=== PATIENT | female | born 1975 | race Caucasian/White ===

== ENCOUNTER 2020-03-11 13:59 | Observation (INO) ==
[2020-03-11 15:41] LABS: Basophils % 0.4 %; Eosinophils # 0.1 K/mcL (0.0-0.6); Eosinophils % 0.6 %; Hematocrit 34.9 % (35.3-44.9); Hemoglobin 11.9 g/dL (11.5-15.4); Lymphocytes # 1.7 K/mcL (0.6-4.6); Lymphocytes % 21.8 %; Mean Corpuscular HGB Conc 34.1 g/dL (31.6-35.5); Mean Corpuscular Hemoglobin 30.7 pg (28.0-33.3); Mean Corpuscular Volume 89.9 fL (83.0-100.0); Mean Platelet Volume 9.7 fL (9.4-12.4); Monocytes # 0.7 K/mcL (0.0-1.3); Monocytes % 8.4 %; Neutrophils # 5.4 K/mcL (1.6-8.9); Platelet Count 326 K/mcL (140-400); Red Blood Count 3.88 M/mcL (3.82-4.97); Red Cell Distribution Width 11.3 % (11.5-14.5); Segmented Neutrophils % 67.8 %
[2020-03-11 16:05] LABS: Alanine Aminotransferase 7 Units/L (7-52); Albumin 4.1 g/dL (3.5-5.7); Albumin/Globulin Ratio 0.9 (1.1-2.2); Alkaline Phosphatase 102 Units/L (34-104); Amylase 20 Units/L (29-103); Aspartate Amino Transferase 10 Units/L (13-39); BUN/Creatinine Ratio 20 (6-26); Bilirubin,Direct 0.1 mg/dL (0.0-0.2); Bilirubin,Indirect 0.6 mg/dL (0.0-1.0); Bilirubin,Total 0.7 mg/dL (0.3-1.0); Blood Urea Nitrogen 12 mg/dL (6-20); Calcium 10.2 mg/dL (8.6-10.3); Carbon Dioxide 29 mEq/L (23-29); Chloride 95 mEq/L (98-107); Globulin 4.7 g/dL (2.4-3.5); Glucose 228 mg/dL (70-105); Lipase 20 Units/L (11-82); Osmolality,Calculated 283 (280-300); Potassium 3.4 mEq/L (3.5-5.1); Sodium 133 mEq/L (136-145); Total Protein 8.8 g/dL (6.4-8.9); eGFR For African Americans > 60 (> 60); eGFR For Non-African Americans > 60 (> 60)
[2020-03-11] MEDS ORDERED: Micafungin 100 MG in 0.9 % Sodium Chloride Mini Bag 100 ML IVPB STA (16:21)
[2020-03-11] MEDS ORDERED: Isovue-370 500 ML BOTTLE IVP ONE (16:43)
[2020-03-11] MEDS ORDERED: cefTRIAXone 1,000 MG in Water for inj. (sterile) 10 ML IVP ONE (17:39)
[2020-03-11] MEDS ORDERED: 0.9 % Sodium Chloride 1,000 ML IVC ONE (17:52)
[2020-03-11 18:09] LABS: Bilirubin,Urine Negative (Negative); Blood,Urine Moderate (Negative); Budding Yeast,Urine Many per hpf (None Seen); Clarity,Urine Ex.Turbid (Clear); Color,Urine Yellow (Yellow); Glucose,Urine (UA) 50 mg/dL (Normal); Ketones,Urine Negative (Negative); Leukocyte Esterase,Urine Large (Negative); Mucus,Urine Few per lpf (None-Few); Nitrite,Urine Negative (Negative); Protein,Urine 200 mg/dL (Neg-Trace); RBC,Urine 50-100 per hpf (0-3); Specific Gravity,Urine > 1.030 (1.010-1.025); Urobilinogen,Urine Normal (Normal); WBC,Urine TNTC per hpf (0-3)
[2020-03-11] MEDS ORDERED: Ondansetron 4 MG/2 ML VIAL IVP PRN (18:13)
[2020-03-11] MEDS ORDERED: Naloxone 0.4 MG/ML INJ IVP PRN (18:13)
[2020-03-11] MEDS ORDERED: Vancomycin 1,250 MG/262.5 ML IV.SOLN IVPB SCH (19:00)
[2020-03-11 19:20] LABS: Estimated Average Glucose 275 mg/dl
[2020-03-11] MEDS ORDERED: Insulin DETEMIR 100 UNIT/ML X5UNITS SQ SCH (21:00)
[2020-03-11] MEDS: *HR* Heparin 5,000 UNIT/ML VIAL SQ SCH (21:07)
[2020-03-11] MEDS: 0.9 % Sodium Chloride 1,000 ML IVC SCH (21:07)
[2020-03-11] MEDS: hydrOXYzine pamoate 25 MG CAPSULE PO SCH (21:08)
[2020-03-11] MEDS: Gabapentin 300 MG CAPSULE PO SCH (21:08)
[2020-03-11] MEDS: hydrALAZINE 25 MG TABLET PO SCH (21:08)
[2020-03-11] MEDS: *HR* HYDROcodone/Acet 5/325 mg TABLET PO PRN (21:14)
[2020-03-12] MEDS: Piperacillin/Tazobactam 3.375 GM in 0.9 % Sodium Chloride Mini Bag 100 ML IVPB SCH ×3 (01:44→17:12)
[2020-03-12 05:46] LABS: Basophils # 0.1 K/mcL (0.0-0.2); Basophils % 0.7 %; Eosinophils % 0.5 %; Hematocrit 31.6 % (35.3-44.9); Immature Granulocytes % 0.9 % (0-4); Lymphocytes # 1.4 K/mcL (0.6-4.6); Lymphocytes % 18.4 %; Mean Corpuscular HGB Conc 32.3 g/dL (31.6-35.5); Mean Corpuscular Hemoglobin 29.5 pg (28.0-33.3); Mean Corpuscular Volume 91.3 fL (83.0-100.0); Mean Platelet Volume 9.4 fL (9.4-12.4); Monocytes # 0.7 K/mcL (0.0-1.3); Monocytes % 8.8 %; Neutrophils # 5.4 K/mcL (1.6-8.9); Platelet Count 287 K/mcL (140-400); Red Blood Count 3.46 M/mcL (3.82-4.97); Red Cell Distribution Width 11.4 % (11.5-14.5); Segmented Neutrophils % 70.7 %; White Blood Count 7.6 K/mcL (4.3-11.1)
[2020-03-12] MEDS: *HR* Heparin 5,000 UNIT/ML VIAL SQ SCH ×3 (05:48→21:34)
[2020-03-12 05:49] LABS: Hemoglobin 10.2 g/dL (11.5-15.4)
[2020-03-12 06:00] LABS: BUN/Creatinine Ratio 28 (6-26); Blood Urea Nitrogen 14 mg/dL (6-20); Calcium 8.9 mg/dL (8.6-10.3); Carbon Dioxide 26 mEq/L (23-29); Chloride 102 mEq/L (98-107); Glucose 249 mg/dL (70-105); Magnesium 1.8 mg/dL (1.6-2.6); Osmolality,Calculated 289 (280-300); Phosphorous 3.5 mg/dL (2.7-4.5); Potassium 3.7 mEq/L (3.5-5.1); Sodium 135 mEq/L (136-145); eGFR For African Americans > 60 (> 60); eGFR For Non-African Americans > 60 (> 60)
[2020-03-12] MEDS: Gabapentin 300 MG CAPSULE PO SCH ×3 (07:38→21:34)
[2020-03-12] MEDS: hydroCHLOROthiazide 25 MG TABLET PO SCH (07:38)
[2020-03-12] MEDS: hydrALAZINE 25 MG TABLET PO SCH ×3 (07:38→21:34)
[2020-03-12] MEDS: lisinopriL 5 MG TABLET PO SCH (07:38)
[2020-03-12] MEDS: 0.9 % Sodium Chloride 1,000 ML IVC SCH (07:39)
[2020-03-12] MEDS: Insulin LISPRO 300 UNITS/3 ML VIAL SQ SCH ×3 (07:42→17:13)
[2020-03-12] MEDS: Vancomycin 1,250 MG/262.5 ML IV.SOLN IVPB SCH ×2 (09:02→21:35)
[2020-03-12] MEDS: Acetaminophen 325 MG TABLET PO PRN (14:37)
[2020-03-12] MEDS: Micafungin 100 MG in 0.9 % Sodium Chloride Mini Bag 100 ML IVPB SCH (16:20)
[2020-03-12] MEDS ORDERED: Insulin DETEMIR 100 UNIT/ML X5UNITS SQ SCH (21:00)
[2020-03-12] MEDS: hydrOXYzine pamoate 25 MG CAPSULE PO SCH (21:34)
[2020-03-12] MEDS: *HR* HYDROcodone/Acet 5/325 mg TABLET PO PRN (21:44)
[2020-03-13] MEDS: Piperacillin/Tazobactam 3.375 GM in 0.9 % Sodium Chloride Mini Bag 100 ML IVPB SCH ×2 (00:11→09:33)
[2020-03-13] MEDS: *HR* Heparin 5,000 UNIT/ML VIAL SQ SCH ×2 (05:05→14:06)
[2020-03-13 07:19] LABS: Hematocrit 26.1 % (35.3-44.9); Mean Corpuscular HGB Conc 32.6 g/dL (31.6-35.5); Mean Corpuscular Volume 92.2 fL (83.0-100.0); Mean Platelet Volume 9.4 fL (9.4-12.4); Platelet Count 283 K/mcL (140-400); Red Blood Count 2.83 M/mcL (3.82-4.97); Red Cell Distribution Width 11.3 % (11.5-14.5); White Blood Count 7.8 K/mcL (4.3-11.1)
[2020-03-13 07:20] LABS: Hemoglobin 8.5 g/dL (11.5-15.4)
[2020-03-13 07:38] LABS: BUN/Creatinine Ratio 30 (6-26); Blood Urea Nitrogen 14 mg/dL (6-20); Calcium 8.6 mg/dL (8.6-10.3); Carbon Dioxide 26 mEq/L (23-29); Chloride 105 mEq/L (98-107); Glucose 128 mg/dL (70-105); Magnesium 1.7 mg/dL (1.6-2.6); Osmolality,Calculated 286 (280-300); Phosphorous 3.8 mg/dL (2.7-4.5); Potassium 3.6 mEq/L (3.5-5.1); Sodium 137 mEq/L (136-145); eGFR For African Americans > 60 (> 60); eGFR For Non-African Americans > 60 (> 60)
[2020-03-13] MEDS: Insulin LISPRO 300 UNITS/3 ML VIAL SQ SCH ×4 (09:29→11:30)
[2020-03-13] MEDS: Gabapentin 300 MG CAPSULE PO SCH ×2 (09:34→14:07)
[2020-03-13] MEDS: hydroCHLOROthiazide 25 MG TABLET PO SCH (09:34)
[2020-03-13] MEDS: hydrALAZINE 25 MG TABLET PO SCH ×2 (09:35→14:07)
[2020-03-13] MEDS: lisinopriL 5 MG TABLET PO SCH (09:35)
[2020-03-13] MEDS: Acetaminophen 325 MG TABLET PO PRN (09:38)
[2020-03-13 09:51] VITALS: BP 116/76
[2020-03-13] MEDS: Micafungin 100 MG in 0.9 % Sodium Chloride Mini Bag 100 ML IVPB SCH (15:31)
== END 2020-03-13 17:00 | disposition home health service (06) ==
LOC: 3ANU 13:59 → EMEROOARM 13:59 → SUATTDRO 18:11 → 3ANU 18:45
PROVIDERS: ADMIT Internal Medicine; ATTEND Internal Medicine

== ENCOUNTER 2020-04-07 14:56 | Observation (INO) ==
[2020-04-07] MEDS ORDERED: 0.9 % Sodium Chloride 1,000 ML IVC ONE (16:10)
[2020-04-07] MEDS ORDERED: Isovue-370 500 ML BOTTLE IVP ONE (16:10)
[2020-04-07 16:38] LABS: Bacteria,Urine Few per hpf (None-Few); Bilirubin,Urine Negative (Negative); Blood,Urine Negative (Negative); Clarity,Urine Turbid (Clear); Color,Urine Light-Yellow (Yellow); Glucose,Urine (UA) >=1000 mg/dL (Normal); Ketones,Urine Negative (Negative); Leukocyte Esterase,Urine Large (Negative); Mucus,Urine Few per lpf (None-Few); Nitrite,Urine Negative (Negative); Protein,Urine Trace mg/dL (Neg-Trace); Specific Gravity,Urine 1.024 (1.010-1.025); Squamous Epithelial Cell,Urine Few per hpf (None-Few); Urobilinogen,Urine Normal (Normal); WBC,Urine TNTC per hpf (0-3)
[2020-04-07 16:53] LABS: Basophils % 0.6 %; Eosinophils % 0.6 %; Hematocrit 38.5 % (35.3-44.9); Hemoglobin 12.8 g/dL (11.5-15.4); Immature Granulocytes % 0.6 % (0-4); Lymphocytes # 1.8 K/mcL (0.6-4.6); Lymphocytes % 37.3 %; Mean Corpuscular HGB Conc 33.2 g/dL (31.6-35.5); Mean Corpuscular Hemoglobin 29.8 pg (28.0-33.3); Mean Corpuscular Volume 89.7 fL (83.0-100.0); Mean Platelet Volume 10.1 fL (9.4-12.4); Monocytes # 0.4 K/mcL (0.0-1.3); Monocytes % 8.4 %; Neutrophils # 2.5 K/mcL (1.6-8.9); Platelet Count 251 K/mcL (140-400); Red Blood Count 4.29 M/mcL (3.82-4.97); Red Cell Distribution Width 11.8 % (11.5-14.5); Segmented Neutrophils % 52.5 %; White Blood Count 4.8 K/mcL (4.3-11.1)
[2020-04-07 17:13] LABS: Alanine Aminotransferase 9 Units/L (7-52); Albumin/Globulin Ratio 1.1 (1.1-2.2); Alkaline Phosphatase 81 Units/L (34-104); Aspartate Amino Transferase 10 Units/L (13-39); BUN/Creatinine Ratio 19 (6-26); Bilirubin,Direct 0.1 mg/dL (0.0-0.2); Bilirubin,Indirect 0.5 mg/dL (0.0-1.0); Bilirubin,Total 0.6 mg/dL (0.3-1.0); Blood Urea Nitrogen 11 mg/dL (6-20); Calcium 9.4 mg/dL (8.6-10.3); Carbon Dioxide 25 mEq/L (23-29); Chloride 100 mEq/L (98-107); Globulin 3.8 g/dL (2.4-3.5); Glucose 338 mg/dL (70-105); Lipase 43 Units/L (11-82); Osmolality,Calculated 291 (280-300); Potassium 3.7 mEq/L (3.5-5.1); Sodium 134 mEq/L (136-145); Total Protein 7.8 g/dL (6.4-8.9); eGFR For African Americans > 60 (> 60); eGFR For Non-African Americans > 60 (> 60)
[2020-04-07] MEDS ORDERED: cefTRIAXone 1,000 MG in 0.9 % Sodium Chloride Mini Bag 100 ML IVPB ONE (19:00)
[2020-04-07] MEDS ORDERED: Ondansetron 4 MG/2 ML VIAL IVP ONE (19:06)
[2020-04-07] MEDS ORDERED: Acetaminophen 325 MG TABLET PO PRN (20:20)
[2020-04-07] MEDS ORDERED: Naloxone 0.4 MG/ML INJ IVP PRN (20:20)
[2020-04-07] MEDS ORDERED: D5% in Water 1,000 ML IVC PRN (20:24)
[2020-04-07] MEDS ORDERED: *HR* Dextrose 50 % in Water (Vial) 50 ML VIAL IVP PRN (20:24)
[2020-04-07] MEDS ORDERED: Dextrose Gel 15 GM/37.5 ML TUBE PO PRN ×2 (20:24)
[2020-04-07] MEDS ORDERED: polyethylene glycoL 3350 17 GM POWD.PACK PO PRN (20:27)
[2020-04-07] MEDS ORDERED: hydroCHLOROthiazide 25 MG TABLET PO SCH (20:30)
[2020-04-07] MEDS ORDERED: Insulin LISPRO 300 UNITS/3 ML VIAL SQ SCH (21:00)
[2020-04-07] MEDS ORDERED: Insulin DETEMIR 100 UNIT/ML X5UNITS SQ SCH (21:00)
[2020-04-07] MEDS ORDERED: Ringers Solution, Lactated 1,000 ML IVC SCH (22:30)
[2020-04-07] MEDS: Gabapentin 300 MG CAPSULE PO SCH (22:36)
[2020-04-07] MEDS: hydrALAZINE 25 MG TABLET PO SCH (22:36)
[2020-04-07] MEDS: Ringers Solution, Lactated 1,000 ML IVC SCH (23:29)
[2020-04-08 04:28] LABS: Basophils % 0.5 %; Eosinophils % 0.7 %; Hematocrit 36.3 % (35.3-44.9); Hemoglobin 11.6 g/dL (11.5-15.4); Immature Granulocytes % 0.5 % (0-4); Lymphocytes # 1.9 K/mcL (0.6-4.6); Lymphocytes % 44.3 %; Mean Corpuscular Volume 90.8 fL (83.0-100.0); Mean Platelet Volume 9.9 fL (9.4-12.4); Monocytes # 0.4 K/mcL (0.0-1.3); Platelet Count 211 K/mcL (140-400); Red Cell Distribution Width 11.8 % (11.5-14.5); White Blood Count 4.4 K/mcL (4.3-11.1)
[2020-04-08 04:44] LABS: Prothrombin Time 11.4 Seconds (9.4-12.1)
[2020-04-08 04:49] LABS: BUN/Creatinine Ratio 20 (6-26); Blood Urea Nitrogen 11 mg/dL (6-20); Calcium 9.2 mg/dL (8.6-10.3); Carbon Dioxide 27 mEq/L (23-29); Chloride 102 mEq/L (98-107); Chol/HDL Ratio 9.3 (0-4.9); Cholesterol 315 mg/dL (< 200); Glucose 287 mg/dL (70-105); HDL Cholesterol 34 mg/dL (40-59); Magnesium 1.8 mg/dL (1.6-2.6); Osmolality,Calculated 294 (280-300); Potassium 3.5 mEq/L (3.5-5.1); Sodium 137 mEq/L (136-145); Triglycerides 953 mg/dL (< 150); eGFR For African Americans > 60 (> 60); eGFR For Non-African Americans > 60 (> 60)
[2020-04-08] MEDS: *HR* Enoxaparin 40 MG/0.4 ML SYRINGE SQ SCH (05:53)
[2020-04-08] MEDS ORDERED: Insulin LISPRO 300 UNITS/3 ML VIAL SQ SCH ×2 (06:00→07:30)
[2020-04-08] MEDS: Ringers Solution, Lactated 1,000 ML IVC SCH (08:17)
[2020-04-08] MEDS: cefTRIAXone 1,000 MG in Water for inj. (sterile) 10 ML IVP SCH (08:17)
[2020-04-08] MEDS: Loratadine 10 MG TABLET PO SCH (08:18)
[2020-04-08] MEDS: Micafungin 100 MG in 0.9 % Sodium Chloride Mini Bag 100 ML IVPB SCH (08:18)
[2020-04-08] MEDS: Gabapentin 300 MG CAPSULE PO SCH ×3 (08:18→21:08)
[2020-04-08] MEDS: hydrALAZINE 25 MG TABLET PO SCH ×2 (08:20→21:07)
[2020-04-08] MEDS ORDERED: hydrOXYzine pamoate 25 MG CAPSULE PO SCH (09:00)
[2020-04-08] MEDS: Insulin LISPRO 300 UNITS/3 ML VIAL SQ SCH ×3 (11:28→21:12)
[2020-04-08] MEDS: Insulin DETEMIR 100 UNIT/ML X5UNITS SQ SCH (21:07)
[2020-04-08] MEDS: hydrOXYzine pamoate 25 MG CAPSULE PO SCH (21:31)
[2020-04-09 05:02] LABS: Basophils % 0.7 %; Eosinophils % 0.9 %; Hemoglobin 10.6 g/dL (11.5-15.4); Immature Granulocytes % 0.4 % (0-4); Lymphocytes # 2.1 K/mcL (0.6-4.6); Lymphocytes % 45.8 %; Mean Corpuscular HGB Conc 33.1 g/dL (31.6-35.5); Mean Corpuscular Volume 90.7 fL (83.0-100.0); Mean Platelet Volume 9.7 fL (9.4-12.4); Monocytes # 0.4 K/mcL (0.0-1.3); Monocytes % 8.6 %; Platelet Count 206 K/mcL (140-400); Red Blood Count 3.53 M/mcL (3.82-4.97); Red Cell Distribution Width 11.6 % (11.5-14.5); Segmented Neutrophils % 43.6 %; White Blood Count 4.5 K/mcL (4.3-11.1)
[2020-04-09 05:19] LABS: BUN/Creatinine Ratio 29 (6-26); Blood Urea Nitrogen 14 mg/dL (6-20); Calcium 8.7 mg/dL (8.6-10.3); Carbon Dioxide 25 mEq/L (23-29); Chloride 105 mEq/L (98-107); Glucose 271 mg/dL (70-105); Osmolality,Calculated 296 (280-300); Potassium 3.4 mEq/L (3.5-5.1); Sodium 138 mEq/L (136-145); eGFR For African Americans > 60 (> 60); eGFR For Non-African Americans > 60 (> 60)
[2020-04-09] MEDS: Ondansetron 4 MG/2 ML VIAL IVP PRN ×2 (05:30→21:00)
[2020-04-09] MEDS: *HR* HYDROcodone/Acet 5/325 mg TABLET PO PRN (05:31)
[2020-04-09] MEDS: *HR* Enoxaparin 40 MG/0.4 ML SYRINGE SQ SCH (05:31)
[2020-04-09] MEDS: Insulin LISPRO 300 UNITS/3 ML VIAL SQ SCH ×4 (07:42→20:49)
[2020-04-09] MEDS: cefTRIAXone 1,000 MG in Water for inj. (sterile) 10 ML IVP SCH (07:43)
[2020-04-09] MEDS: Gabapentin 300 MG CAPSULE PO SCH ×3 (07:43→20:48)
[2020-04-09] MEDS: Micafungin 100 MG in 0.9 % Sodium Chloride Mini Bag 100 ML IVPB SCH (07:43)
[2020-04-09] MEDS: hydrALAZINE 25 MG TABLET PO SCH ×2 (07:44→20:48)
[2020-04-09] MEDS: lisinopriL 5 MG TABLET PO SCH (07:44)
[2020-04-09] MEDS: Loratadine 10 MG TABLET PO SCH (07:44)
[2020-04-09] MEDS: *HR* OxyCODONE Immed Rel 5 MG TABLET PO PRN (14:22)
[2020-04-09] MEDS: Insulin DETEMIR 100 UNIT/ML X5UNITS SQ SCH (20:48)
[2020-04-09] MEDS: hydrOXYzine pamoate 25 MG CAPSULE PO SCH (20:48)
[2020-04-10] MEDS: *HR* Enoxaparin 40 MG/0.4 ML SYRINGE SQ SCH (05:43)
[2020-04-10 05:58] LABS: Basophils % 0.8 %; Eosinophils % 0.6 %; Hematocrit 33.3 % (35.3-44.9); Hemoglobin 10.7 g/dL (11.5-15.4); Immature Granulocytes % 0.4 % (0-4); Lymphocytes # 1.8 K/mcL (0.6-4.6); Lymphocytes % 38.7 %; Mean Corpuscular HGB Conc 32.1 g/dL (31.6-35.5); Mean Corpuscular Hemoglobin 29.4 pg (28.0-33.3); Mean Corpuscular Volume 91.5 fL (83.0-100.0); Mean Platelet Volume 9.8 fL (9.4-12.4); Monocytes # 0.4 K/mcL (0.0-1.3); Monocytes % 8.6 %; Neutrophils # 2.4 K/mcL (1.6-8.9); Platelet Count 207 K/mcL (140-400); Red Blood Count 3.64 M/mcL (3.82-4.97); Red Cell Distribution Width 11.8 % (11.5-14.5); Segmented Neutrophils % 50.9 %; White Blood Count 4.8 K/mcL (4.3-11.1)
[2020-04-10 06:24] LABS: BUN/Creatinine Ratio 22 (6-26); Blood Urea Nitrogen 15 mg/dL (6-20); Calcium 9.3 mg/dL (8.6-10.3); Carbon Dioxide 29 mEq/L (23-29); Chloride 102 mEq/L (98-107); Glucose 345 mg/dL (70-105); Osmolality,Calculated 299 (280-300); Potassium 4.3 mEq/L (3.5-5.1); Sodium 137 mEq/L (136-145); eGFR For African Americans > 60 (> 60); eGFR For Non-African Americans > 60 (> 60)
[2020-04-10] MEDS: Insulin LISPRO 300 UNITS/3 ML VIAL SQ SCH ×4 (08:04→20:58)
[2020-04-10] MEDS: Loratadine 10 MG TABLET PO SCH (08:05)
[2020-04-10] MEDS: hydroCHLOROthiazide 25 MG TABLET PO SCH (08:06)
[2020-04-10] MEDS: hydrALAZINE 25 MG TABLET PO SCH ×2 (08:06→20:57)
[2020-04-10] MEDS: Micafungin 100 MG in 0.9 % Sodium Chloride Mini Bag 100 ML IVPB SCH (08:06)
[2020-04-10] MEDS: cefTRIAXone 1,000 MG in Water for inj. (sterile) 10 ML IVP SCH (08:07)
[2020-04-10] MEDS: Gabapentin 300 MG CAPSULE PO SCH ×3 (08:07→20:57)
[2020-04-10] MEDS: lisinopriL 5 MG TABLET PO SCH (08:08)
[2020-04-10] MEDS ORDERED: cefTRIAXone 2,000 MG in 0.9 % Sodium Chloride Mini Bag 100 ML IVPB SCH (09:00)
[2020-04-10] MEDS: *HR* OxyCODONE Immed Rel 5 MG TABLET PO PRN (10:36)
[2020-04-10] MEDS: Insulin DETEMIR 100 UNIT/ML X5UNITS SQ SCH ×2 (10:37→20:57)
[2020-04-10] MEDS: hydrOXYzine pamoate 25 MG CAPSULE PO SCH (20:56)
[2020-04-10] MEDS: *HR* HYDROcodone/Acet 5/325 mg TABLET PO PRN (22:01)
[2020-04-11] MEDS: *HR* OxyCODONE Immed Rel 5 MG TABLET PO PRN (03:37)
[2020-04-11 03:44] VITALS: BP 103/65
[2020-04-11 04:09] LABS: Basophils % 0.8 %; Eosinophils % 0.8 %; Hematocrit 35.8 % (35.3-44.9); Hemoglobin 11.9 g/dL (11.5-15.4); Immature Granulocytes % 0.6 % (0-4); Lymphocytes # 2.4 K/mcL (0.6-4.6); Lymphocytes % 48.4 %; Mean Corpuscular HGB Conc 33.2 g/dL (31.6-35.5); Mean Corpuscular Hemoglobin 30.2 pg (28.0-33.3); Mean Corpuscular Volume 90.9 fL (83.0-100.0); Mean Platelet Volume 9.8 fL (9.4-12.4); Monocytes # 0.4 K/mcL (0.0-1.3); Neutrophils # 2.1 K/mcL (1.6-8.9); Platelet Count 213 K/mcL (140-400); Red Blood Count 3.94 M/mcL (3.82-4.97); Red Cell Distribution Width 11.7 % (11.5-14.5); Segmented Neutrophils % 41.4 %
[2020-04-11 04:28] LABS: BUN/Creatinine Ratio 26 (6-26); Blood Urea Nitrogen 19 mg/dL (6-20); Calcium 9.9 mg/dL (8.6-10.3); Carbon Dioxide 33 mEq/L (23-29); Chloride 98 mEq/L (98-107); Glucose 328 mg/dL (70-105); Osmolality,Calculated 295 (280-300); Potassium 3.8 mEq/L (3.5-5.1); Sodium 135 mEq/L (136-145); eGFR For African Americans > 60 (> 60); eGFR For Non-African Americans > 60 (> 60)
[2020-04-11] MEDS: *HR* Enoxaparin 40 MG/0.4 ML SYRINGE SQ SCH (05:58)
[2020-04-11] MEDS: Gabapentin 300 MG CAPSULE PO SCH (08:06)
[2020-04-11] MEDS: lisinopriL 5 MG TABLET PO SCH (08:06)
[2020-04-11] MEDS: hydroCHLOROthiazide 25 MG TABLET PO SCH (08:06)
[2020-04-11] MEDS: hydrALAZINE 25 MG TABLET PO SCH (08:06)
[2020-04-11] MEDS: Loratadine 10 MG TABLET PO SCH (08:06)
[2020-04-11] MEDS: Insulin LISPRO 300 UNITS/3 ML VIAL SQ SCH (08:06)
[2020-04-11] MEDS: Insulin DETEMIR 100 UNIT/ML X5UNITS SQ SCH (08:07)
[2020-04-11] MEDS ORDERED: cephALEXin 500 MG CAPSULE PO SCH (09:00)
== END 2020-04-11 08:57 | disposition home or self-care (01) ==
LOC: 3ANU 14:56 → EMEROOARM 14:56 → SUATTDRO 20:09 → 3ANU 20:40
PROVIDERS: ADMIT Family Medicine; ATTEND Family Medicine